=== PATIENT | male | born 1990 | race Hispanic/Latino ===

== ENCOUNTER 2024-07-16 19:38 | Emergency (ER) | payer SELFPAY ==
[~2024-07-16] VITALS: Ht 160 cm; Wt 74.8 kg
[2024-07-16] MEDS: ibuPROFEN 600 MG TABLET PO ONE (20:12)
--- NOTE | 2024-07-16 20:46 | HMCIMG ---
Exam Type: ANKLE COMP 3VWS LT Clinical Information: twisted Comparison: None Findings: The bone examination is unremarkable. No fractures or dislocations are seen. No radiopaque foreign bodies are noted. Soft tissues are preserved. IMPRESSION: Normal examination.
--- NOTE | 2024-07-16 21:15 | ERN ---
ED Note History of Present Illness Stated Complaint: L ANKLE PAIN Chief Complaint: Ankle Problem Time Seen by MD: 19:47 Time Seen by Midlevel: 19:47 Dictation: The patient is a 34-year-old male with history of left elbow surgery who presents to the emergency department with complaints of left ankle pain after twisting it while jumping out a window. Denies any head trauma, abdominal or chest trauma, patient does not have any other complaints. Denies any pain anywhere else Past Medical History Past Medical History: No Pertinent History Surgical History: Other Surgical History Other: L ELBOW Review of System Dictation Constitutional: Negative for fever,chills, and weight loss Eyes: Negative for injury, pain,redness, and discharge ENT: Negative for injury,pain or swelling Cardiovascular: Negative for chest pain, palpitations, and edema Respiratory: Negative for shortness of breath, cough, and wheezing, Abdomen/GI: Negative for abdominal pain, nausea, vomiting, diarrhea, and constipation Back: Negative for injury and pain : Negative for injury, bleeding and discharge MS/Extremity: Negative for injury and deformity positive for left ankle pain Skin: Negative for rash, and discoloration Neuro: Negative for headache, weakness, numbness, tingling, and seizure Psych: Negative for suicide ideation, homicidal ideation, and hallucinations Initial Vital Sign VS Vital Signs Date Time Temp Pulse Resp B/P (MAP) Pulse Ox O2 Delivery O2 Flow Rate FiO2 07/16/24 19:41 99.0 106 18 114/77 96 Room Air* 0 21 Physical Exam Dictation Vital Signs reviewed General Appearance: Alert, oriented x 3, no acute distress, well developed, nourished. Head and Face: non-traumatic. Eyes: PERRL, pink conjunctivas, eyelid no trauma, anterior chamber with arcus senilis. Ears: Pinnas intact and no signs of trauma or erythema ear canals clear and no discharge TM no erythema Nose: No discharge, no bleeding. Oropharynx: Mouth normal, tongue pink. pharynx clear,no erythema, tonsils no exudates, no abscesses noted, mucous membrane moist Neck: Supple, non-tender, no thyromegaly, no masses, no JVD, no bruits Breast:Deferred Chest:No tenderness, no crepitus, no paradoxical movement, no retractions Lungs:Clear, well-ventilated, symmetric, no rales, no wheezing, no rhonchi, no stridor, good breath sounds bilaterally Heart: Regular rate, regular rhythm, no murmur, no gallops Vascular: no peripheral edema, dorsalis pedis 3+ bilaterally Abdomen: Soft, positive bowel sounds, nondistended, no guarding, nontender, no rebound, no masses no hepatomegaly, no splenomegaly, no Amaro's sign, no hernias. Rectal: Deferred Genital: Deferred Neurological: Normal speech, motor function intact, sensory function intact Musculoskeletal: Neck nontender, full range of motion, back nontender, full range of motion, Extremities: nontender, full range of motion , full range of motion to left ankle, no swelling, no open wounds. Skin: Color pink, dry, no turgor, no rash, no lacerations, no abrasions, no contusions. Lymphatic: Deferred Results (Laboratory/Radiology) Laboratory/Radiology REASON: twisted ORDERING PHYSICIAN: DAMIEN DAILY CAT HOOKER PROCEDURE: [id number] - ANKLE COMP 3VWS LT Exam Type: ANKLE COMP 3VWS LT Clinical Information: twisted Comparison: None Findings: The bone examination is unremarkable. No fractures or dislocations are seen. No radiopaque foreign bodies are noted. Soft tissues are preserved. IMPRESSION: Normal examination. Labs Reviewed?: Yes ED Course ED Course Orders Procedure Category Date Status Time Ankle Comp 3vws Lt RAD 07/16/24 Resulted 20:00 Ibuprofen 600 Mg PHA 07/16/24 Complete Tablet (Motrin) 20:00 Apply Yvan Wrap (Er) CPOE 07/16/24 Transmitted 21:02 Current Medications Medications (Trade) Dose Ordered Sig/Baljinder Route PRN Reason Start Time Stop Time Status Last Admin Dose Admin Ibuprofen (moTRIN) 600 mg ONCE ONCE PO 07/16/24 20:00 07/16/24 20:01 DC 07/16/24 20:12 Vital Signs Date Time Temp Pulse Resp B/P (MAP) Pulse Ox O2 Delivery O2 Flow Rate FiO2 07/16/24 19:44 99.0 106 18 114/77 95 Room Air 0 07/16/24 19:41 99.0 106 18 114/77 96 Room Air* 0 21 Medical Decision Making MDM The patient is a 34-year-old male with history of left elbow surgery who presents to the emergency department with complaints of left ankle pain after twisting it while jumping out a window. Denies any head trauma, abdominal or chest trauma, patient does not have any other complaints. Denies any pain any where else X-ray showed no acute fractures. Patient in no acute distress, nontoxic appearance. Will be discharged to follow up with PCP and for orthopedic referral. Patient's foot neurovascularly intact. Differential diagnosis: Ankle fracture, ankle dislocation, sprain ankle Need for hospitalization: Patient does not meet criteria for hospitalization. There are no social concerns with this patient. DX & DISP Disposition: Discharge Departure Impression: Primary Impression: Left ankle sprain Condition: Stable Additional Instructions: FOLLOW-UP WITH PRIMARY CARE PROVIDER IN 1 TO 2 DAYS. TAKE MEDICATIONS DIRECTED HERE IN THE EMERGENCY ROOM. OKAY TO CONTINUE HOME MEDICATIONS UNLESS OTHERWISE DISCUSSED DURING YOUR VISIT IN THE EMERGENCY ROOM TODAY. RETURN TO YOUR NEAREST EMERGENCY ROOM IF SYMPTOMS WORSEN OR IF THERE IS NO IMPROVEMENT. CALL 911 IF YOU NEED IMMEDIATE ASSISTANCE. TAKE TYLENOL OR MOTRIN [id number] NEEDED AND IF NO CONTRAINDICATIONS ARE PRESENT. INCREASE ORAL HYDRATION. A WOUND CULTURE OR URINE CULTURE WAS ORDERED HERE IN THE EMERGENCY ROOM DEPARTMENT PLEASE FOLLOW-UP WITH PRIMARY CARE PROVIDER AND ADVISE THEM TO GET REPEAT PORTS FROM OUR FACILITY. IF YOU HAD ANY YVAN WRAP/SPLINTS THAT WERE APPLIED HERE, PLEASE DO NOT REMOVE THEM UNTIL YOU SEE YOUR PRIMARY CARE OR SPECIALTY. Referrals: SELF,REFERRAL (PCP) Time of Disposition: 21:15 I have reviewed the case, and I agree with, Diagnosis and Plan DAMIEN DAILY [facility] Jul 16, 2024 21:15
[2024-07-16 21:27] VITALS: BP 118/72; PULSE 88; RESP 16; TEMP 98.8; O2SAT 95
--- NOTE | 2024-07-16 21:30 | NUR ---
L ANKLE WRAPPED WITH NINO WRAP
== END 2024-07-16 21:35 | disposition home or self-care (01) ==
LOC: EDH 19:38
DX: S93.402A Sprain of unspecified ligament of left ankle, initial encounter (principal); X50.1XXA Overexertion from prolonged static or awkward postures, initial encounter; Y93.89 Activity, other specified; Y92.89 Other specified places as the place of occurrence of the external cause; Y99.8 Other external cause status
CPT/HCPCS: 73610; 99283